=== PATIENT | female | born 2000 | race Caucasian/White ===

== ENCOUNTER → 2020-02-11 15:55 | Outpatient (BNVA) | payer BC, SELFPAY | PROVIDERS: Family Provider Physician Assistant Medical; Visit Provider Nurse Practitioner Women's Health | DX: Z01.419 Encounter for gynecological examination (general) (routine) without abnormal findings (principal); N92.1 Excessive and frequent menstruation with irregular cycle; Z97.5 Presence of (intrauterine) contraceptive device | CPT/HCPCS: 88175 ==

== ENCOUNTER 2020-05-14 14:52 | Emergency (ER) | payer BC, SELFPAY ==
[2020-05-14 14:55] VITALS: BP 143/81; PULSE 97; RESP 18; TEMP 36.3; O2SAT 99; BMI 27.3
--- NOTE | 2020-05-14 14:55 | ECG_ITS ---
[facility] Test Date: 2020-05-14 Pat Name: Bridgett Larson Department: Room: Gender: Female Sheep Sticker: : [id number] Requested By: Mery Panchal Order Number: [id number] Juanito MD: Félix Guzman M.D. Measurements Intervals [place] Rate: 82 P: 61 [place]: 142 QRS: 58 QRSD: 90 T: 38 QT: 346 QTc: 404 Interpretive Statements SINUS RHYTHM No previous ECG available for comparison Electronically Signed On 05-14-2020 18:58:34 HOOK PULLER by Félix Guzman M.D. [id number]
--- NOTE | 2020-05-14 15:03 | ED_ITS ---
HPI - General Adult General: Chief complaint: General Medical Stated complaint: HIGH HR Time Seen by Provider: 05/14/20 15:00 Source: patient Mode of arrival: ambulatory Limitations: no limitations History of Present Illness: HPI narrative: 19-year-old female states she is giving plasma over the last week and both times when she is tachycardic. Patient with urgent care today because she is having palpitations I sent her here. Her heart rate here is 97. She states she has been under a lot of stress she is in the process of getting and is stressed out about the wedding. States she feels quite anxious. She denies any chest pain or shortness of breath. Denies any vomiting or diarrhea. Denies any worsening or improving factors. Associated symptoms: Reports palpitations; Deny dyspnea, headache(s), nausea, rash or vomiting Review of Systems Const: Denies: fever(s), chills, body aches or change in appetite Eyes: Denies: blurry vision or eye discomfort ENMT: Denies: throat pain or dental pain Card: Reports: palpitations Resp: Denies: dyspnea GI: Denies: abdominal pain, nausea, vomiting or diarrhea : Denies: dysuria Musc: Denies: neck pain or back pain Skin/Breast: Denies: rash Neuro: Denies: headache(s) Psych: Reports: anxiety Germán/Lymph: Denies: easy bruising All/Imm: Denies: urticaria PFSH ED PFSH: Medical History No pertinent past medical history neghx: htn,dm,thyroid,dvt/pe Surgical History H/O thumb surgery (2005) x3 Tendon repair on right thumb--[facility] Family History Grandmother Cervical cancer, Onset Age: 60 Maternal grandmother Family/Other Breast cancer Paternal great aunt Grandfather Heart disease Paternal grandfather Hypertension Paternal grandfather Denies family history of Colon cancer Ovarian cancer Diabetes Hyperlipidemia Family history of thyroid problem Uterine cancer Stroke Social History Additional social history: - Tobacco use: Denies Alcohol use: Social Drug use: Denies Physical Exam Const: COMMON NORMALS: no acute distress, patient oriented x3 and healthy appearing HENMT: COMMON NORMALS: normocephalic and atraumatic HEAD & SCALP: normocephalic and atraumatic Eye: COMMON NORMALS: Equal, round and reactive pupils present and EOMs intact bilaterally PUPIL: Yes Equal, round and reactive pupils present Neck/C-Spine: COMMON NORMALS: full ROM and supple Chest: COMMONS NORMALS: normal inspection of the chest and normal palpation of entire chest wall Resp: COMMON NORMALS: normal respiratory effort, No retractions, No use of accessory muscles and clear to auscultation bilaterally AUSCULTATION: clear to auscultation bilaterally Cardio: COMMON NORMALS: regular rhythm and No murmurs present (Cardio) RATE: tachycardic RHYTHM: regular rhythm GI: COMMON NORMALS: Normal to inspection, nondistended, normoactive bowel sounds present, Soft to palpation, non-tender and no masses PALPATION: Yes Soft to palpation Extremity: COMMON NORMALS: normal to inspection and full ROM Neuro: COMMON NORMALS: patient oriented x3, moves all extremities and no focal motor deficits Psych: COMMON NORMALS: mental status grossly normal, Normal thought process present and cooperative THOUGHT PROCESS: Normal thought process present Skin: COMMON NORMALS: no rashes or lesions noted and no wounds GENERAL SKIN EXAM: no rashes or lesions noted Course Vital Signs: Vital signs: Vital Signs Temperature 97.3 F L 05/14/20 14:55 Pulse Rate 83 05/14/20 15:53 Respiratory Rate 18 05/14/20 15:53 Blood Pressure 119/73 05/14/20 15:53 Pulse Oximetry 98 05/14/20 15:53 MDM - General Adult MDM Narrative: Medical decision making narrative: Bridgett presents here with palpitations. This is likely due to stress as her heart rate is improved here after Ativan. EKG and blood work are normal. She has no signs of acute coronary syndrome or pulmonary embolism. She is stable for discharge to follow- up with PCP and return if worsening. Lab Data: Labs: Lab Results 05/14/20 05/14/20 05/14/20 Range/Units 15:27 15:27 15:49 WBC 7.0 (4.0-10.0) 10^3/ uL RBC 4.91 (4.1-5.3) 10^6/u L Hgb 14.6 (11.5-15.3) g/dL Hct 45.1 (37.0-47.0) % MCV 91.9 (81-99) fL MCH 29.7 (28.0-34.0) pg MCHC 32.4 (30.0-36.0) g/dL RDW 12.0 L (12.1-15.1) % Plt Count 279 (130-400) 10^3/c mm MPV 8.4 (7.4-10.4) fL Neut % (Auto) 56.8 % Lymph % (Auto) 35.1 % [place] % (Auto) 6.0 % Eos % (Auto) 1.4 % Baso % (Auto) 0.6 % Neut # (Auto) 3.96 (1.8-7.7) 10^3/u L Lymph # (Auto) 2.5 (0.8-4.8) 10^3/u L [place] # (Auto) 0.4 (0.2-0.9) 10^3/u L Eos # (Auto) 0.1 (0.0-0.8) 10^3/u L Baso # (Auto) 0.0 (0.0-0.1) 10^3/u L Nucleated RBC % (a uto) 0 % Nucleated RBCs # 0.0 /100WBC HCG, Qual Negative Negative (Negative) EKG Data^: EKG 1: Attestation: I personally reviewed and interpreted this EKG as follows: EKG interpretation date: 05/14/20 EKG interpretation time: 15:44 Interpretation: nsr hr [address] or t wave abnormalities qrs 90 qtc 384 Discharge Plan Discharge Patient Disposition: Home Clinical Impression: Palpitations Condition: Stable Prescriptions: No Action ibuprofen [IBU] 400 mg tablet 400 mg PO Q8H PRN (Reason: Pain) RF: 0 Nexplanon 68 mg implant 1 implant SUBDERMAL .every 3 years RF: 0 Burberine See Rx Instructions .ROUTE .COMPLEX RF: 0 Vitamin B-12 1 tab PO DAILY RF: 0 calcium 1 tab PO DAILY RF: 0 magnesium 1 tab PO DAILY RF: 0 potassium 1 tab PO DAILY RF: 0 Discharge Orders: Discharge Order (Routine); Ordered 05/14/20 Ordered By: Mery Panchal Referrals: Elizabet Bullard [Family Provider] - 1-3 days Discharge Diet: Advance as tolerated Discharge Activity: Resume usual activity Patient Instructions: Palpitations (ED) Coding Level of Care Code ED Dressage Instructor for Chg Fwd Exam Comprehensive
[2020-05-14] MEDS: LORazepam 2 mg/mL INJ 1 mL 1 MG IVP (15:12)
[2020-05-14] MEDS: sodium chloride 0.9% 1,000 ML 999 ML IV (15:13)
[2020-05-14 15:43] LABS: Basophils % 0.6 %; Eosinophils # 0.1 10^3/uL (0.0-0.8); Eosinophils % 1.4 %; Hematocrit 45.1 % (37.0-47.0); Hemoglobin 14.6 g/dL (11.5-15.3); Lymphocytes # 2.5 10^3/uL (0.8-4.8); Lymphocytes % 35.1 %; Mean Corpuscular HGB Conc 32.4 g/dL (30.0-36.0); Mean Corpuscular Hemoglobin 29.7 pg (28.0-34.0); Mean Corpuscular Volume 91.9 fL (81-99); Mean Platelet Volume 8.4 fL (7.4-10.4); Monocytes # 0.4 10^3/uL (0.2-0.9); Neutrophils # 3.96 10^3/uL (1.8-7.7); Neutrophils % 56.8 %; Nucleated Red Blood Cells % 0 %; Platelet Count 279 10^3/cmm (130-400); Red Blood Count 4.91 10^6/uL (4.1-5.3)
[2020-05-14 15:53] VITALS: BP 119/73; PULSE 83; RESP 18; O2SAT 98
[2020-05-14 16:05] LABS: HCG Qualitative Urine. Negative (Negative)
[2020-05-14 16:05] LABS: HCG, Serum Qual Negative (Negative)
[2020-05-14 17:06] VITALS: BP 114/73; PULSE 83; RESP 18; O2SAT 98
== END 2020-05-14 17:16 | disposition home or self-care (01) ==
PROVIDERS: Emergency Provider Emergency Medicine; PCP Registered Nurse
DX: R00.2 Palpitations (principal)
CPT/HCPCS: 12345; 81025; 84703; 85025; 93005; 96361; 96374; 96375; 99282; 99283; J2060; J7030

== ENCOUNTER 2024-06-12 11:34 | Outpatient (CLI) | payer OTHER, SELFPAY ==
[2024-06-12 11:42] VITALS: RESP 18; BMI 35.7
[2024-06-12 11:46] VITALS: BP 139/91; PULSE 115
[2024-06-12 12:07] VITALS: BP 126/87; PULSE 100
[2024-06-12 12:23] VITALS: BP 126/87; PULSE 100; O2SAT 98
== END 2024-06-12 12:23 | disposition home or self-care (01) ==
LOC: OPOB 11:34 → OBGYN 11:35
PROVIDERS: PCP Registered Nurse; Visit Provider Family Medicine
DX: O36.8190 Decreased fetal movements, unspecified trimester, not applicable or unspecified (principal); Z3A.00 Weeks of gestation of pregnancy not specified
CPT/HCPCS: 99211

== ENCOUNTER 2024-09-05 19:22 | Outpatient (CLI) | payer OTHER, SELFPAY ==
[2024-09-05 19:27] VITALS: BMI 24.5
[2024-09-05 19:39] VITALS: TEMP 35.8
[2024-09-05 19:40] VITALS: BP 125/90; PULSE 96
[2024-09-05 19:56] VITALS: BP 143/92; PULSE 87
[2024-09-05 20:09] VITALS: BP 133/90; PULSE 93
[2024-09-05 20:23] VITALS: BP 133/90; PULSE 93; RESP 16; TEMP 36.7; O2SAT 98
== END 2024-09-05 20:33 | disposition home or self-care (01) ==
LOC: OPOB 19:26 → OBGYN 19:27
PROVIDERS: PCP Registered Nurse; Visit Provider Family Medicine
DX: O16.9 Unspecified maternal hypertension, unspecified trimester (principal); Z3A.00 Weeks of gestation of pregnancy not specified
CPT/HCPCS: 59025; 99211

== ENCOUNTER 2024-09-10 01:06 | Inpatient (IN) | payer OTHER, SELFPAY ==
[2024-09-10] VITALS (80 sets, daily range): BP systolic 105–162; BP diastolic 55–97; PULSE 68–101; RESP 16–18; TEMP 35.6–36.4; O2SAT 93–100; BMI 39.5
[2024-09-10] MEDS: miSOPROStol 100 mcg tablet 25 MCG VAGINAL ×2 (02:14→06:13)
[2024-09-10 02:15] LABS: Basophils % 0.3 %; Eosinophils # 0.1 10^3/uL (0.0-0.8); Eosinophils % 0.8 %; Hematocrit 39.3 % (36-47); Lymphocytes # 2.4 10^3/uL (0.8-4.8); Lymphocytes % 24.5 %; Mean Corpuscular HGB Conc 33.1 g/dL (30-55); Mean Corpuscular Hemoglobin 29.3 pg (27-33); Mean Corpuscular Volume 88.7 fl (85-98); Monocytes # 0.8 10^3/uL (0.2-0.9); Monocytes % 8.4 %; Neutrophils # 6.35 10^3/uL (1.8-7.7); Neutrophils % 65.6 %; Nucleated Red Blood Cells % 0 %; Platelet Count 207 10^3/cmm (157-399); Red Blood Count 4.43 10^6/uL (3.85-5.65); Red Cell Distribution Width 13.2 % (12.1-15.1); White Blood Count 9.68 10^3/uL (3.29-11.43)
--- NOTE | 2024-09-10 11:56 | PM.OPHPUD ---
Labor & Delivery H&P Update Date of Procedure: September 10, 2024 Date H&P Performed: 09/09/24 Changes to previous documentation: None Admission Diagnosis: 23-year-old 1 at 39 weeks estimated gestational age presenting for gestational hypertension Planned procedure: Vaginal delivery Other information: The patient is a pleasant 23-year-old woman who has had relatively unremarkable . Over the last 1 week and a half she has began having high blood pressures. She had high blood pressures in my clinic the previous week as well as in a visit in the hospital over the weekend. Finally yesterday my clinic she also had high blood pressures as well. Because of her gestational age the decision was made to proceed with an induction. Her blood type is a positive. Her antibody screen is negative. She is GBS positive. She passed her glucose screen. She is rubella immune. The remainder of her infectious disease profile is within normal limits. Related Problem List Diagnoses (1) 39 weeks gestation of : (2) Gestational hypertension: A&P Assessment and plan (1) 39 weeks gestation of : I anticipate routine induction. We started with Cytotec 25 mcg x 3 due to her firm cervix. Amniotomy was performed today. She is GBS positive, and we will initiate GBS protocol. A preeclamptic profile is been ordered. Status: Acute (2) Gestational hypertension: Status: Acute PDMP PDMP Reviewed: Not Reviewed
[2024-09-10] MEDS: ampicillin 2,000 MG in sodium chloride 0.9% (plus) 50 ML 100 MG IV (12:16)
[2024-09-10] MEDS: dextrose 5%-lactated ringers 1,000 ML 125 ML IV (12:16)
[2024-09-10 13:05] LABS: Alanine Aminotransferase 10 U/L (0-33); Albumin Level 3.6 g/dL (3.5-5.2); Alkaline Phosphatase 123 U/L (35-105); Anion Gap 14.9 (5-19); Aspartate Amino Transferase 18 U/L (0-32); Blood Urea Nitrogen 8 mg/dL (6-20); Calcium 8.8 mg/dL (8.5-10.5); Carbon Dioxide 18 mmol/L (22-29); Chloride 106 mmol/L (98-107); Creatinine Clr Calc Pharmacy 165.8523; Globulin 2.6 g/dL (1.3-4.6); Glucose 77 mg/dL (65-115); Osmolality Calculated 277 mOsm/kg (285-295); Potassium 3.9 mmol/L (3.5-5.1); Sodium 135 mmol/L (136-145); Total Bilirubin 0.3 mg/dL (0.15-1.2); Total Protein 6.2 g/dL (6.6-8.7); Uric Acid 6.6 mg/dL (2.4-5.7)
[2024-09-10 13:11] LABS: Bilirubin Urine Negative (Negative); Blood Urine 1+ (Negative); Glucose Urine UA Negative (Normal); Ketones Urine Trace (Negative); Leukocyte Esterase Urine Negative (Negative); Nitrate Urine Negative (Negative); Protein Urine Negative (Negative); Specific Gravity, Urine 1.013 (1.005-1.030); Urine Appearance Clear (CLEAR); Urine Color Yellow (Yellow); Urobilinogen Urine 0.2 mg/dL (Negative); pH Urine 6.5 (5-7)
[2024-09-10 13:14] LABS: Add Urine Microscopic? YES; Bacteria Urine None Seen /hpf; RBC Urine 21-50 /hpf (0-2); WBC Urine 0-5 /hpf (0-5)
[2024-09-10 13:15] LABS: Add Urine Culture? Yes
[2024-09-10 13:27] LABS: Urine Creatinine 107 mg/dL (28-217); Urine Protein Random 10 mg/dL
[2024-09-10 13:28] LABS: UPRO/UCREAT Ratio 0.09 mg/mg CR
[2024-09-10] MEDS: lactated ringers 1,000 ML 999 ML IV (13:48)
[2024-09-10] MEDS: ROPivacaine syringe 100 MG/50 ML SYRINGE 13 MG EPIDURAL ×2 (14:45→17:15)
--- NOTE | 2024-09-10 14:55 | ANES.PREANE2 ---
Pre-Anesthetic Assessment Height/Weight: Height 1.73 m Weight 117.934 kg Temp Pulse Resp BP Pulse Ox O2 Del Method 97.2 F L 75 18 139/77 100 Room Air 09/10/24 12:46 09/10/24 14:50 09/10/24 12:45 09/10/24 14:50 09/10/24 14:50 09/10/24 02:20 Epidural Familial anesthetic complications: None Was Beta Sigifredo taken within 24 hours: N/A Was Clonidine taken within 24 hours: N/A Last intake: > 8hrs Social No alcohol and No tobacco Exam alert, oriented x 3, clear to auscultation bilaterally and regular rate & rhythm Anesthetic Plan ASA status: 2 Anesthesia: Regional (specify below) Risk of > 500 ml blood loss (7ml/kg in children): Yes, adequate IV access and fluids planned Medications/Allergies Home Medications ?Medication ?Instructions ?Recorded ?Confirmed ?Last Taken ?Type 1 tab PO DAILY 09/05/24 09/10/24 09/09/24 History levocetirizine 5 mg PO DAILY 09/05/24 09/10/24 09/09/24 History Allergies Allergy/AdvReac Type Severity Reaction Status Date / Time fentanyl Allergy Nausea/Vomi Verified 09/10/24 01:25 tting/Diarr hea/Dizzine ss Current Medications Generic Name Dose Route Start Last Admin Trade Name Freq PRN Reason Stop Dose Admin Dextrose/Lactated Ringer's 1,000 mls @ 125 mls/hr 09/10/24 01:00 09/10/24 12:16 Dextrose 5%-Lactated Ringers IV 125 mls/hr .Q8H ELIAS Administration Lactated Ringer's 1,000 mls @ 999 mls/hr 09/10/24 13:43 09/10/24 13:48 Lactated Ringers IV 999 mls/hr .Q1H1M PRN Administration See label comments Ropivacaine 100 mg in 50 mls @ 10 mls/hr 09/10/24 13:45 09/10/24 14:45 Naropin Syringe EPIDURAL 13 mls/hr .Q5H ELIAS Administration PFSH Anesthesia Medical History (Updated 09/10/24 @ 11:59 by Dimitrios Granger MD) Allergic reaction Urticaria No pertinent past medical history neghx: htn,dm,thyroid,dvt/pe Surgical History H/O thumb surgery (2005) x3 Tendon repair on right thumb--[facility] Family History Grandmother Cervical cancer Maternal grandmother--dx age 60 Family/Other Breast cancer Paternal great aunt--dx age 70's Family history of thyroid problem Maternal Aunt Maternal Cousins Maternal Uncle Grandfather Heart disease Paternal grandfather Hypertension Paternal grandfather Mother Hyperlipidemia Father Hypertension Denies family history of Colon cancer Ovarian cancer Diabetes Uterine cancer Stroke Female Reproductive History : 1 Data Anesthesia 09/10/24 02:09 09/10/24 12:38 Short CBC 09/10/24 Range/Units 02:09 WBC 9.68 (3.29-11.43) 10^3/uL Hgb 13.00 (11.27-16.99) g/dL Hct 39.3 (36-47) % MCV 88.7 (85-98) fl Plt Count 207 (157-399) 10^3/cmm Neut % (Auto) 65.6 % Neut # (Auto) 6.35 (1.8-7.7) 10^3/uL BMP 09/10/24 09/10/24 12:00 12:38 Sodium Cancelled 135 L Potassium Cancelled 3.9 Chloride Cancelled 106 Carbon Dioxide Cancelled 18 L BUN Cancelled 8 Creatinine Cancelled 0.7 Glucose Cancelled 77 Calcium Cancelled 8.8 Liver Function 09/10/24 09/10/24 Range/Units 12:00 12:38 Total Bilirubin Cancelled 0.3 AST Cancelled 18 ALT Cancelled 10 Alkaline Phosphatase Cancelled 123 H Albumin Cancelled 3.6 Urine 09/10/24 Range/Units 13:00 Urine Color Yellow (Yellow) Urine Appearance Clear (CLEAR) Urine pH 6.5 (5-7) Ur Specific [place] 1.013 (1.005-1.030) Urine Protein Negative (Negative) Urine Glucose (UA) Negative (Normal) Urine Ketones Trace (Negative) Urine Nitrate Negative (Negative) Urine Bilirubin Negative (Negative) Ur Leukocyte Esterase Negative (Negative) Urine RBC 21-50 H (0-2) /hpf Urine WBC 0-5 (0-5) /hpf Blood Bank 09/10/24 02:13 Blood Type A Positive Rho(D) Type Rh positive Antibody Screen Negative Cardiac Studies: No Data to Display
--- NOTE | 2024-09-10 14:56 | ANES.PROC ---
Anesthesia Procedures Procedure/Date: 09/10/24 Epidural: Time Out Performed: Yes Consents Signed: Procedure Consent Consent: requested by attending/covering physician, from patient, from other, risks and benefits reviewed and patient agrees to proceed Lumbar Level: L3-L4 Epidural position: sitting Epidural procedure: sterile prep of area, 1% lidocaine to numb the area, 18 g needle, negative for paresthesia passed, neg for paresthesia, test dose given, 1.5% xylocaine 1:200k epi (5 cc), 0.2% Ropivacaine bolus ml (5 cc), placed PCEA, no systemic response, sterile dressing applied, L.U.D. no apparent complications and 0.2% Ropiavacaine @ mls/hr (13) Additional Comments: JESSICA at 6.5 threaded to 12.5 cm. Patient reported decrease in pain of contractions from 9/10 to 7/10 and feeling of legs getting warm.
[2024-09-10] MEDS: ampicillin 1,000 MG in sodium chloride 0.9% (plus) 50 ML 100 MG IV (17:15)
[2024-09-10] MEDS: oxytocin 30 UNIT/500 ML BAG 600 UNIT IV (19:47)
--- NOTE | 2024-09-10 20:01 | P.PCNOB_ITS ---
Delivery Note: Date of delivery: September 10, 2024 Pre-delivery diagnoses: 23-year-old 1 at 39 weeks estima samuel gestational age presenting to the hospital due to gestational hypertension Post-delivery diagnoses: Status post spontaneous vaginal delivery Procedure: Spontaneous vaginal delivery Delivering Physician: Dimitrios Granger Estimated blood loss (mL): 50 Pre-Delivery Course: The patient presented to the hospital for induction due to gestational hypertension. She was placed on Cytotec 25 mcg x 2. An amniotomy was performed. An epidural was placed. She progressed complete without difficulty. Her blood pressures were elevated but nonsevere range. Delivery: DELIVERY: The patient progressed to complete without difficulty. She delivered a female with a weight of 9 pounds 5 ounces with Apgars of 8, 9. The baby was delivered from the KATHY position and placed on the mother's abdomen. The cord was then clamped and cut. There was a nuchal cord x 1 which was reduced prior to delivery of the shoulders. There was terminal meconium. The placenta and 3 vessel cord were delivered intact shortly thereafter. The perineum and vaginal vault were carefully examined. There were a number of first-degree lacerations around the labia majora and labia minora that did not require repair.. Both the mother and the baby were in stable condition. Post-Delivery Status: Good History History History 1 Term 1 0 Miscarriages/Ectopic 0 Living Children 1 A&P Assessment and plan (1) Vaginal delivery: I anticipate routine care. We will continue to monitor her blood pressures to make sure she is not getting more severe hypertension. Otherwise, she is having no symptoms of preeclampsia. (2) Gestational hypertension: PDMP PDMP Reviewed: Not Reviewed Coding Level of Care Code Acute Code for Chg Fwd Diagnoses Vaginal delivery O80 Gestational hypertension O13.9
[2024-09-10] MEDS: ibuprofen 800 mg tablet PO (21:39)
[2024-09-10] MEDS: lanolin oint 7 gm 1 APPLIC TOPICAL (23:32)
[2024-09-10] MEDS: benzocaine-menthol 78 gm Canister 1 SPRAY TOPICAL (23:32)
[2024-09-11 00:35] VITALS: BP 129/88; PULSE 91; RESP 16; TEMP 36.7
[2024-09-11 01:35] VITALS: BP 131/68; PULSE 66; RESP 16
[2024-09-11 03:35] VITALS: BP 127/84; PULSE 74; RESP 16; TEMP 36.8
--- NOTE | 2024-09-11 08:00 | ANE.PACU2 ---
Inpatient post-anesthesia follow up: Airway intact: Yes Vital signs: Temperature 98.2 F Pulse Rate 78 Respiratory Rate 17 Blood Pressure 140/83 Pulse Oximetry 98 Oxygen Delivery Me thod Room Air Oxygen Flow Rate Fraction of Inspir ed Oxygen Hydration adequate: Yes Nausea and vomiting: No Pain level: 1 Mental status: Baseline Epidural Start/End: Epidural Start Date: 09/10/24 Epidural Start Time: 14:32 Epidural End Date: 09/10/24 Epidural End Time: 22:23
--- NOTE | 2024-09-11 08:14 | PM.OBGYDC ---
Discharge Providers HEALTH INFORMATION TECHNICIAN Date of Admission: 09/10/24 01:06 Date of Discharge: 09/12/24 Attending Provider at Admission: Dimitrios Granger MD Attending Provider at Discharge: Dimitrios Granger MD Primary Care Provider: PAPO Posada Diagnoses at Discharge Discharge Diagnosis (1) Vaginal delivery: Status: Acute (2) Gestational hypertension: Status: Acute Reason for Visit Reason for Visit: IOL Hospital Course Hospital Course The patient presented to the hospital for induction due to gestational hypertension. She had no other signs of preeclampsia. She induced with Cytotec 25 mcg x 2. An amniotomy was performed. An epidural was placed. She progressed to complete and had an unremarkable delivery of a healthy appearing large for gestational age baby. Her course was unremarkable. She breast-fed well. There were no concerns. Information Peripartum Data: Infant Delivery Method: Vaginal Physical Exam Narrative: The patient is alert. She appears comfortable. Her heart has a regular rate and rhythm with no murmurs appreciated. Lungs are clear to auscultation bilaterally. Her fundus is firm and below the umbilicus. Urinary Catheter Management: Ronquillo: Cath Placed During This Visit: yes, but has since been removed by the nurse Reason for Continuing Indwelling Catheter: Decision to DC Catheter Urinary Catheter Date of Insertion: 09/10/24 Urinary Catheter Time of Insertion: 15:27 Date Urinary Catheter Removed: 09/10/24 Time Urinary Catheter Discontinued: 17:25 History History History 1 Term 1 0 Miscarriages/Ectopic 0 Living Children 1 Discharge Data Studies Completed and Pending Pending at discharge Category Date Time Status Hemagram Timed Lab 09/11/24 08:01 Uncollected Urine Culture Stat Lab 09/10/24 13:00 Received Laboratory Results WBC 9.68 10^3/uL (3.29-11.43) 09/10/24 02:09 RBC 4.43 10^6/uL (3.85-5.65) 09/10/24 02:09 Hgb 13.00 g/dL (11.27-16.99) 09/10/24 02:09 Hct 39.3 % (36-47) 09/10/24 02:09 MCV 88.7 fl (85-98) 09/10/24 02:09 MCH 29.3 pg (27-33) 09/10/24 02:09 MCHC 33.1 g/dL (30-55) 09/10/24 02:09 RDW 13.2 % (12.1-15.1) 09/10/24 02:09 Plt Count 207 10^3/cmm (157-399) 09/10/24 02:09 MPV 9.0 fL (7.4-10.4) 09/10/24 02:09 Neut % (Auto) 65.6 % 09/10/24 02:09 Lymph % (Auto) 24.5 % 09/10/24 02:09 [place] % (Auto) 8.4 % 09/10/24 02:09 Eos % (Auto) 0.8 % 09/10/24 02:09 Baso % (Auto) 0.3 % 09/10/24 02:09 Neut # (Auto) 6.35 10^3/uL (1.8-7.7) 09/10/24 02:09 Lymph # (Auto) 2.4 10^3/uL (0.8-4.8) 09/10/24 02:09 [place] # (Auto) 0.8 10^3/uL (0.2-0.9) 09/10/24 02:09 Eos # (Auto) 0.1 10^3/uL (0.0-0.8) 09/10/24 02:09 Baso # (Auto) 0.0 10^3/uL (0.0-0.1) 09/10/24 02:09 Nucleated RBC % (auto) 0 % 09/10/24 02:09 Nucleated RBCs # 0.0 /100WBC 09/10/24 02:09 Sodium 135 mmol/L (136-145) L 09/10/24 12:38 Potassium 3.9 mmol/L (3.5-5.1) 09/10/24 12:38 Chloride 106 mmol/L (98-107) 09/10/24 12:38 Carbon Dioxide 18 mmol/L (22-29) L 09/10/24 12:38 Anion Gap 14.9 (5-19) 09/10/24 12:38 BUN 8 mg/dL (6-20) 09/10/24 12:38 Creatinine 0.7 mg/dL (0.5-0.9) 09/10/24 12:38 GFR Calculation 102.0 mL/min (90-130) 09/10/24 12:38 Glucose 77 mg/dL (65-115) 09/10/24 12:38 Calculated Osmolality 277 mOsm/kg (285-295) L 09/10/24 12:38 Uric Acid 6.6 mg/dL (2.4-5.7) H 09/10/24 12:38 Calcium 8.8 mg/dL (8.5-10.5) 09/10/24 12:38 Total Bilirubin 0.3 mg/dL (0.15-1.2) 09/10/24 12:38 AST 18 U/L (0-32) 09/10/24 12:38 ALT 10 U/L (0-33) 09/10/24 12:38 Alkaline Phosphatase 123 U/L (35-105) H 09/10/24 12:38 Total Protein 6.2 g/dL (6.6-8.7) L 09/10/24 12:38 Albumin 3.6 g/dL (3.5-5.2) 09/10/24 12:38 Globulin 2.6 g/dL (1.3-4.6) 09/10/24 12:38 Urine Color Yellow (Yellow) 09/10/24 13:00 Urine Appearance Clear (CLEAR) 09/10/24 13:00 Urine pH 6.5 (5-7) 09/10/24 13:00 Ur Specific [place] 1.013 (1.005-1.030) 09/10/24 13:00 Urine Protein Negative (Negative) 09/10/24 13:00 Urine Glucose (UA) Negative (Normal) 09/10/24 13:00 Urine Ketones Trace (Negative) 09/10/24 13:00 Urine Blood 1+ (Negative) A 09/10/24 13:00 Urine Nitrate Negative (Negative) 09/10/24 13:00 Urine Bilirubin Negative (Negative) 09/10/24 13:00 Urine Urobilinogen 0.2 mg/dL (Negative) 09/10/24 13:00 Ur Leukocyte Esterase Negative (Negative) 09/10/24 13:00 Urine RBC 21-50 /hpf (0-2) H 09/10/24 13:00 Urine WBC 0-5 /hpf (0-5) 09/10/24 13:00 Ur Squamous Epith Cells 6-10 /hpf (0-5) 09/10/24 13:00 Amorphous Sediment Not Reportable 09/10/24 13:00 Urine Bacteria None seen /hpf (NONE) 09/10/24 13:00 Hyaline Casts 0.40 /lpf 09/10/24 13:00 U Random Total Protein 10 mg/dL 09/10/24 13:00 Urine Creatinine 107 mg/dL (28-217) 09/10/24 13:00 Protein/Creatinin Ratio 0.09 mg/mg CR 09/10/24 13:00 Blood Type A Positive 09/10/24 02:13 Rho(D) Type Rh positive 09/10/24 02:13 Antibody Screen Negative 09/10/24 02:13 Vitals Last Vital Signs Temp 98.3 F 09/11/24 03:35 Pulse 74 09/11/24 03:35 Resp 16 09/11/24 03:35 BP 127/84 09/11/24 03:35 Pulse Ox 99 09/10/24 16:05 O2 Del Method Room Air 09/10/24 02:20 Results Labs OB ([facility]): Blood Type A Positive 09/10/24 Antibody Screen Negative 09/10/24 Hct 37.2 % (36-47) 09/11/24 Hgb 12.20 g/dL (11.27-16.99) 09/11/24 Rho(D) Type Rh positive 09/10/24 Plt Count 195 10^3/cmm (157-399) 09/11/24 Uric Acid 6.6 mg/dL (2.4-5.7) H 09/10/24 Micro Urine Specimen 09/10/24 Discharge Plan Discharge Patient Disposition: Home Condition: Stable Prescriptions: New ibuprofen 800 mg Tablet 800 mg PO TID Qty: 45 0RF Continued 1 tab PO DAILY levocetirizine 5 mg PO DAILY Discharge Orders: Discharge Order (Routine); Ordered 09/11/24 Ordered By: Dimitrios Granger Referrals: Dimitrios Granger MD [Physician] - 10/23/24 11:50 am Discharge Diet: Usual diet Discharge Activity: Limit activity as instructed Patient Instructions: Depression (DC), Opioid Safety (DC), Preeclampsia and Eclampsia After Delivery (GEN), Hemorrhage (DC), OB Discharge Report, OB Food/Drug Interaction Guide, OB Care at Home, Opioid Safety, OB Vaginal Deliveries, Abnormal Bleeding Discharge Attestations HEALTH INFORMATION TECHNICIAN Time Spent in Discharge Care*: less than 30 min Coding Level of Care Code Acute Code for Chg Fwd Diagnoses Vaginal delivery O80 Gestational hypertension O13.9
[2024-09-11 08:38] LABS: Hematocrit 37.2 % (36-47); Mean Corpuscular HGB Conc 32.8 g/dL (30-55); Mean Corpuscular Hemoglobin 29.5 pg (27-33); Mean Corpuscular Volume 90.1 fl (85-98); Mean Platelet Volume 8.9 fL (7.4-10.4); Platelet Count 195 10^3/cmm (157-399); Red Blood Count 4.13 10^6/uL (3.85-5.65); Red Cell Distribution Width 13.5 % (12.1-15.1); White Blood Count 14.61 10^3/uL (3.29-11.43)
[2024-09-11] MEDS: ibuprofen 800 mg tablet PO ×3 (09:34→20:40)
[2024-09-11] MEDS: PRENATAL VIT NO.130/IRON/FOLIC 1 EACH TABLET PO (09:34)
[2024-09-11] MEDS: docusate sodium 100 mg Capsule PO ×2 (09:35→20:41)
[2024-09-11 09:37] VITALS: BP 135/76; PULSE 88; RESP 17; TEMP 36.6; O2SAT 98
[2024-09-11 15:31] VITALS: BP 143/77; PULSE 83; RESP 15; TEMP 36.6; O2SAT 98
[2024-09-11 21:45] VITALS: BP 131/84; PULSE 101; RESP 16; TEMP 36.9
[2024-09-12 05:45] VITALS: BP 126/78; PULSE 71; RESP 16; TEMP 36.9
--- NOTE | 2024-09-12 06:24 | P.PN_ITS ---
HEAD OF HISTORY Subjective 2 Subjective: Interval history: The patient has done well postdelivery. Her bleeding has been within normal limits. She has sent some difficulty with breast-feeding but that is improving. Her pain is been well-controlled. Labor: Station: +1 Amniotic Membrane Status: Ruptured Monitor Mode: External Contraction Pattern: Regular Status: Category I Vitals/I&O/Wt Last Vital Signs Temp 98.5 F 09/12/24 05:45 Pulse 71 09/12/24 05:45 Resp 16 09/12/24 05:45 BP 126/78 09/12/24 05:45 Pulse Ox 98 09/11/24 15:31 O2 Del Method Room Air 09/11/24 15:31 Physical Exam 2 Narrative: The patient is alert. She appears comfortable. Her heart has a regular rate and rhythm with no murmurs appreciated. Lungs are clear to auscultation bilaterally. Her fundus is firm and below the umbilicus. Urinary Catheter Management: [place]qu[place]: Cath Placed During This Visit: yes, but has since been removed by the nurse Reason for Continuing Indwelling Catheter: Decision to DC Catheter Urinary Catheter Date of Insertion: 09/10/24 Urinary Catheter Time of Insertion: 15:27 Date Urinary Catheter Removed: 09/10/24 Time Urinary Catheter Discontinued: 17:25 Data 09/11/24 08:20 09/10/24 12:38 Micro: Microbiology 09/10/24 13:00 Urine Culture - Preliminary Urine,Clean Catch A&P Assessment and plan (1) Gestational hypertension: I anticipate routine care. If her blood pressures adjust or she has any other signs of preeclampsia we will adjust accordingly Qualifiers: Trimester: third trimester Qualified Code(s): O13.3 - Gestational [-induced] hypertension without significant proteinuria, third trimester (2) Vaginal delivery: (3) 39 weeks gestation of : Plan Routine care. Her blood pressures have improved. There have been no other signs of preeclampsia PDMP PDMP Reviewed: Not Reviewed Attestations 2 Medical Necessity Statement*: I anticipate routine care. Coding Level of Care Code Acute Code for Chg Fwd Diagnoses Gestational hypertension, third trimester O13.3 Trimester: third trimester Vaginal delivery O80 39 weeks gestation of Z3A.39
[2024-09-12] MEDS: PRENATAL VIT NO.130/IRON/FOLIC 1 EACH TABLET PO (08:39)
[2024-09-12] MEDS: docusate sodium 100 mg Capsule PO (08:39)
[2024-09-12] MEDS: ibuprofen 800 mg tablet PO (08:39)
[2024-09-12 08:56] LABS: Mean Corpuscular HGB Conc 32.6 g/dL (30-55); Mean Corpuscular Hemoglobin 29.7 pg (27-33); Mean Corpuscular Volume 91.3 fl (85-98); Mean Platelet Volume 8.5 fL (7.4-10.4); Platelet Count 194 10^3/cmm (157-399); Red Blood Count 4.27 10^6/uL (3.85-5.65); Red Cell Distribution Width 13.7 % (12.1-15.1); White Blood Count 9.83 10^3/uL (3.29-11.43)
[2024-09-12 09:59] VITALS: BP 140/83; PULSE 78; RESP 17; TEMP 36.8; O2SAT 98
== END 2024-09-12 10:28 | disposition home or self-care (01) | DRG 807 ==
LOC: OBGYN 04:08 → OPOB 09-17 08:24
PROVIDERS: Admitting Provider Family Medicine; PCP Registered Nurse; Visit Provider Family Medicine
DX: O13.4 Gestational [pregnancy-induced] hypertension without significant proteinuria, complicating childbirth (principal); Z37.0 Single live birth; O99.824 Streptococcus B carrier state complicating childbirth; O69.81X0 Labor and delivery complicated by cord around neck, without compression, not applicable or unspecified; O77.0 Labor and delivery complicated by meconium in amniotic fluid; Z3A.39 39 weeks gestation of pregnancy
CPT/HCPCS: 36415; 51702; 59025; 59409; 80053; 81001; 82570; 84156; 84550; 85025; 85027; 86850; 86900; 87086; 99211; J0290; J2590; J2795; J7120; J7121; J9999

== ENCOUNTER 2024-10-29 05:00 | Outpatient (RCR) | payer OTHER, SELFPAY | END 2024-11-28 23:59 | disposition home or self-care (01) | LOC: SPT 05:00 | PROVIDERS: Visit Provider Family Medicine | DX: N39.46 Mixed incontinence (principal) | CPT/HCPCS: 97110; 97161; 97530 ==

== ENCOUNTER 2024-11-08 00:01 | Emergency (ER) | payer OTHER, SELFPAY ==
[2024-11-08 00:13] VITALS: BP 121/85; PULSE 99; RESP 16; TEMP 37.4; O2SAT 97; BMI 35.7
[2024-11-08 01:46] LABS: Basophils % 0.3 %; Eosinophils # 0.3 10^3/uL (0.0-0.8); Eosinophils % 2.6 %; Hematocrit 42.1 % (36-47); Lymphocytes # 1.9 10^3/uL (0.8-4.8); Lymphocytes % 15.1 %; Mean Corpuscular HGB Conc 33.3 g/dL (30-55); Mean Corpuscular Hemoglobin 29.9 pg (27-33); Mean Corpuscular Volume 89.8 fl (85-98); Mean Platelet Volume 8.2 fL (7.4-10.4); Monocytes # 0.9 10^3/uL (0.2-0.9); Monocytes % 7.3 %; Neutrophils # 9.14 10^3/uL (1.8-7.7); Neutrophils % 74.5 %; Nucleated Red Blood Cells % 0 %; Platelet Count 202 10^3/cmm (157-399); Red Blood Count 4.69 10^6/uL (3.85-5.65); White Blood Count 12.28 10^3/uL (3.29-11.43)
[2024-11-08 02:08] LABS: Anion Gap 18.4 (5-19); Blood Urea Nitrogen 24 mg/dL (6-20); Calcium 9.5 mg/dL (8.5-10.5); Carbon Dioxide 24 mmol/L (22-29); Chloride 102 mmol/L (98-107); Creatinine Clr Calc Pharmacy 108.9824; Glucose 90 mg/dL (65-115); Osmolality Calculated 294 mOsm/kg (285-295); Potassium 4.4 mmol/L (3.5-5.1); Sodium 140 mmol/L (136-145)
[2024-11-08] MEDS: ibuprofen 600 mg Tablet PO (03:29)
[2024-11-08] MEDS: clindamycin 900 MG/50 ML PREMIX 100 MG IV (03:29)
--- NOTE | 2024-11-08 06:04 | W.ED.FEVER ---
HPI - Fever General: Chief Complaint: Fever Stated Complaint: 8 weeks post pardum fever dizzy R breast pain Time Seen by Provider: 11/08/24 03:11 History of Present Illness: 24 year old female presenting with right breast pain, fever, feeling dizzy, mildly nauseated. Temperature came on quite quickly. Improved after Tylenol. She spoke with labor and delivery nurses, who urged her to come to the emergency department. She has been pumping aggressively, with some relief of discomfort. Related Data Home Medications ?Medication ?Instructions ?Recorded ?Confirmed 1 tab PO DAILY 09/05/24 09/10/24 levocetirizine 5 mg PO DAILY 09/05/24 09/10/24 Previous Rx's ?Medication ?Instructions ?Recorded ibuprofen 800 mg tablet 800 mg PO TID #45 tabs 09/11/24 clindamycin HCl 300 mg capsule 300 mg PO Q6H 10 days #40 caps 11/08/24 Allergies Allergy/AdvReac Type Severity Reaction Status Date / Time fentanyl Allergy Nausea/Vomi Verified 09/10/24 01:25 tting/Diarr hea/Dizzine PFS ED PFS: Medical History (Updated 11/08/24 @ 03:18 by Geoffrey Esteban DO) Allergic reaction Urticaria No pertinent past medical history neghx: htn,dm,thyroid,dvt/pe Surgical History H/O thumb surgery (2005) x3 Tendon repair on right thumb--[facility] Family History Grandmother Cervical cancer Maternal grandmother--dx age 60 Family/Other Breast cancer Paternal great aunt--dx age 70's Family history of thyroid problem Maternal Aunt Maternal Cousins Maternal Uncle Grandfather Heart disease Paternal grandfather Hypertension Paternal grandfather Mother Hyperlipidemia Father Hypertension Denies family history of Colon cancer Ovarian cancer Diabetes Uterine cancer Stroke Physical Exam Const: COMMON NORMALS: no acute distress GENERAL APPEARANCE: cooperative HENMT: COMMON NORMALS: normocephalic, atraumatic and Normal external nose present HEAD & SCALP: normocephalic and atraumatic FACE & SINUS: normal facial exam and face symmetric NOSE: Normal external nose present Eye: COMMON NORMALS: Equal, round and reactive pupils present and EOMs intact bilaterally PUPIL: Yes Equal, round and reactive pupils present Neck/C-Spine: GENERAL: Yes trachea midline Chest: CHEST: Yes Symmetrical chest wall rise OTHER: Tenderness and warmth to right lateral breast. No area of fluctuance to indicate Abscess. No mass. No purulent or bloody discharge. Minimal redness. Resp: COMMON NORMALS: normal respiratory effort, No retractions, No use of accessory muscles and clear to auscultation bilaterally AUSCULTATION: clear to auscultation bilaterally Cardio: COMMON NORMALS: regular rate and regular rhythm RATE: regular rate RHYTHM: regular rhythm Neuro: LEIGHA COMA SCALE: document GCS findings Leigha coma scale eye opening: Spontaneous [place] coma scale verbal response: Orientated [place] coma scale motor response: Obey commands [place] coma scale total score: 15 SENSORY EXAM: Yes extremities (intact) Psych: COMMON NORMALS: speech normal SPEECH: Yes normal speech Course Vital Signs: Vital signs: Vital Signs Temperature 99.3 F 11/08/24 00:13 Pulse Rate 99 11/08/24 00:13 Respiratory Rate 16 11/08/24 00:13 Blood Pressure 121/85 11/08/24 00:13 Pulse Oximetry 97 11/08/24 00:13 Oxygen Delivery Me thod Room Air 11/08/24 00:13 MDM - Fever Medical Decision Making Temperature 99.3 here. Other vitals are stable. She has not vomited. White blood cell count is 12.3. No left shift. BMP is not remarkable. She has received IV Clindamycin here. She will go home on oral Clindamycin, control of fever, aggressive pumping, compresses, etcetera period to return for any worsening symptoms despite treatment. Lab Data 11/08/24 01:36 11/08/24 01:36 Laboratory Results WBC 12.28 10^3/uL (3.29-11.43) H 11/08/24 01:36 RBC 4.69 10^6/uL (3.85-5.65) 11/08/24 01:36 Hgb 14.00 g/dL (11.27-16.99) 11/08/24 01:36 Hct 42.1 % (36-47) 11/08/24 01:36 MCV 89.8 fl (85-98) 11/08/24 01:36 MCH 29.9 pg (27-33) 11/08/24 01:36 MCHC 33.3 g/dL (30-55) 11/08/24 01:36 RDW 13.0 % (12.1-15.1) 11/08/24 01:36 Plt Count 202 10^3/cmm (157-399) 11/08/24 01:36 MPV 8.2 fL (7.4-10.4) 11/08/24 01:36 Neut % (Auto) 74.5 % 11/08/24 01:36 Lymph % (Auto) 15.1 % 11/08/24 01:36 [place] % (Auto) 7.3 % 11/08/24 01:36 Eos % (Auto) 2.6 % 11/08/24 01:36 Baso % (Auto) 0.3 % 11/08/24 01:36 Neut # (Auto) 9.14 10^3/uL (1.8-7.7) H 11/08/24 01:36 Lymph # (Auto) 1.9 10^3/uL (0.8-4.8) 11/08/24 01:36 [place] # (Auto) 0.9 10^3/uL (0.2-0.9) 11/08/24 01:36 Eos # (Auto) 0.3 10^3/uL (0.0-0.8) 11/08/24 01:36 Baso # (Auto) 0.0 10^3/uL (0.0-0.1) 11/08/24 01:36 Nucleated RBC % (auto) 0 % 11/08/24 01:36 Nucleated RBCs # 0.0 /100WBC 11/08/24 01:36 Sodium 140 mmol/L (136-145) 11/08/24 01:36 Potassium 4.4 mmol/L (3.5-5.1) 11/08/24 01:36 Chloride 102 mmol/L (98-107) 11/08/24 01:36 Carbon Dioxide 24 mmol/L (22-29) 11/08/24 01:36 Anion Gap 18.4 (5-19) 11/08/24 01:36 BUN 24 mg/dL (6-20) H 11/08/24 01:36 Creatinine 1.0 mg/dL (0.5-0.9) H 11/08/24 01:36 GFR Calculation 67.0 mL/min (90-130) L 11/08/24 01:36 Glucose 90 mg/dL (65-115) 11/08/24 01:36 Calculated Osmolality 294 mOsm/kg (285-295) 11/08/24 01:36 Calcium 9.5 mg/dL (8.5-10.5) 11/08/24 01:36 No radiology studies performed this visit Discharge Plan Discharge Patient Disposition: Home Clinical Impression: Mastitis associated with Condition: Stable Prescriptions: New clindamycin HCl 300 mg capsule 300 mg PO Q6H 10 Days Qty: 40 0RF No Action 1 tab PO DAILY levocetirizine 5 mg PO DAILY ibuprofen 800 mg Tablet 800 mg PO TID Qty: 45 0RF Discharge Orders: Discharge ED (Routine); Ordered 11/08/24 Ordered By: Geoffrey Esteban Patient Instructions: Mastitis (ED), Opioid Safety, Pain Management Print Language: Nepalese Coding Level of Care Code ED Spice Mixer for Leyla Garcia
== END 2024-11-08 04:09 | disposition home or self-care (01) ==
PROVIDERS: Emergency Provider Emergency Medicine
DX: N61.0 Mastitis without abscess (principal)
CPT/HCPCS: 36415; 80048; 85025; 96365; 99284; J3490; J9999

== ENCOUNTER 2024-11-29 05:00 | Outpatient (RCR) | payer OTHER, SELFPAY | END 2024-12-28 23:59 | disposition home or self-care (01) | LOC: SPT 05:00 | PROVIDERS: Visit Provider Family Medicine | DX: N39.46 Mixed incontinence (principal) | CPT/HCPCS: 97110; 97530 ==

== ENCOUNTER 2024-12-29 06:30 | Outpatient (RCR) | payer SELFPAY | END 2025-01-19 14:44 | disposition home or self-care (01) | LOC: SPT 06:30 | PROVIDERS: Visit Provider Family Medicine | DX: R32 Unspecified urinary incontinence (principal) | CPT/HCPCS: 97110 ==

== ENCOUNTER 2025-01-29 05:00 | Outpatient (RCR) | payer OTHER, SELFPAY | END 2025-02-28 23:59 | disposition home or self-care (01) | LOC: SPT 05:00 | PROVIDERS: Visit Provider Family Medicine | DX: M54.32 Sciatica, left side (principal) | CPT/HCPCS: 97110; 97161 ==

== ENCOUNTER 2025-03-01 05:00 | Outpatient (RCR) | payer OTHER, SELFPAY | END 2025-03-30 23:59 | disposition home or self-care (01) | LOC: SPT 05:00 | PROVIDERS: Visit Provider Family Medicine | DX: M54.32 Sciatica, left side (principal) | CPT/HCPCS: 97110 ==

== ENCOUNTER 2025-05-14 09:24 | Outpatient (CLI) | payer OTHER, SELFPAY ==
--- NOTE | 2025-05-14 09:34 | MR_ITS ---
WS: [id number] MRI LUMBAR SPINE NONCONTRAST TECHNIQUE: Sagittal T1, T2 and STIR imaging. Axial T1 and T2 imaging. CLINICAL INFORMATION: LEFT SCIATIC NERVE PAIN COMPARISON: 2015 FINDINGS: Mild lumbar curve. No acute compression. Large broad-based central LEFT paracentral disc extrusion is new from previous. Moderate to severe effacement of the thecal sac. Recommend spine surgery consultation. Disc material measures 1.2 cm in AP dimension and 1.8 cm transverse. Impingement on the traversing LEFT greater than RIGHT sacral nerve roots. L1-L2: Normal. L2-L3: Mild facet arthropathy. Spinal canal and foramen are patent. L3-L4: Mild annular bulging. Narrowing of the LEFT subarticular recess. Moderate facet arthropathy. L4-L5: Annular bulging with a shallow RIGHT paracentral protrusion with an annular tear. Impingement on traversing RIGHT L5 nerve root. Mild central canal stenosis. Foramen are patent. Mild facet arthropathy. L5-S1: New large central and LEFT paracentral disc extrusion with moderate to severe effacement of the thecal sac. Impingement on the S1 and S2 nerve roots LEFT greater than RIGHT. Mild facet arthropathy. Foramen are patent. Visualized pelvic bony structures: Normal. Paravertebral soft tissues: Normal. MR/MR lumbar spine wo con* [id number] IMPRESSION: 1. Large L5-S1 central and LEFT paracentral disc extrusion described above wit h impingement on the traversing sacral nerve roots and moderate to severe effac ement of the thecal sac. Recommend spine surgery consultation. 2. Annular bulging L4-5 with a small annular tear impinges the traversing RIGH T L5 nerve root in the subarticular recess. Mild central canal stenosis at this level. Notified Dimitrios Granger MD at 05/14/2025 4:07 PM.
== END 2025-05-14 09:25 | disposition home or self-care (01) ==
LOC: RAD 09:28
PROVIDERS: PCP Family Medicine; Visit Provider Family Medicine
DX: M47.816 Spondylosis without myelopathy or radiculopathy, lumbar region (principal); M51.361 Other intervertebral disc degeneration, lumbar region with lower extremity pain only; M48.061 Spinal stenosis, lumbar region without neurogenic claudication
CPT/HCPCS: 72148